=== PATIENT | male | born 1990 | race Caucasian/White ===

== ENCOUNTER 2024-05-03 09:33 | Observation (INO) ==
--- NOTE | 2024-05-03 09:49 | Emergency Department Note ---
HPI - Abdominal Pain General Chief Complaint: Abdominal Pain Stated Complaint: body ache, vomiting Time Seen by Provider: 05/03/24 09:35 Source: patient Mode of arrival: walk-in Limitations: no limitations History of Present Illness HPI narrative: 34 Y/O Male with a PMHX of HIV, Crohn's disease comes to the ER with c/o weakness, diarhea for the last week. MD elicited complaint: abdominal pain Pertinent past history: HIV Onset (ago): week(s) (1) Pain Consistency: constant Location: diffuse Related Data Allergies Allergy/AdvReac Type Severity Reaction Status Date / Time No Known Drug Allergies Allergy Verified 05/03/24 09:49 Review of Systems Status of ROS 10 or more systems reviewed and unremark able except as noted in history and below Constitutional Reports: fatigue; Denies: fever or chills Eyes Denies: change in vision, blurry vision, blind spots, light sensitivity, eye discomfort or eye discharge Ears, nose, mouth, and throat Denies: throat pain or ear discharge Cardiovascular Denies: chest pain, palpitations, shortness of breath with exertion or shortness of breath when lying down Respiratory Reports: cough and chest congestion; Denies: shortness of breath, wheezing, stridor, pain on inspiration, change in phlegm color or coughing up blood Gastrointestinal Reports: abdominal pain, nausea, vomiting, diarrhea and change in bowel habits Genitourinary Denies: painful urination, urinary frequency, urinary urgency or blood in urine Musculoskeletal Denies: back pain, neck pain, extremity pain, extremity swelling, joint pain or limited range of motion Integumentary/Breast Denies: rash or itching Exam Constitutional: normal general appearance, no limitations and alert Vital Signs - 24 hr 05/03/24 09:48 Temperature 97.9 F Pulse Rate 70 Respiratory Rate 16 Blood Pressure 103/80 Pulse Oximetry 99 Oxygen Delivery Me thod Room Air HENMT: normocephalic Eyes: PERRL Respiratory: normal respiratory effort, no wheezes, no rales, no retractions and no use of accessory muscles Chest congestion Cardiovascular: normal heart rate noted, regular rhythm noted and peripheral pulses 2+ throughout Gastrointestinal: abdomen normal to inspection, abdomen soft to palpation, non tender to palpation, nondistended and normoactive bowel sounds Back/Pelvis: spine normal to inspection, no thoracic spine tenderness, no lumbar spine tenderness, thoracic spine ROM normal and lumbar spine ROM normal 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 Patient given 2 liters NS bolus Azithromycin 500 IV piggy back Reevaluation(s) Reevaluation #1: Patient is stable. he currently denies pain. I discussed with the patient my suspected DX of Bronchitis per the CT scan. Dehydration, with MARVIN I did advised patient I would like to admitted for OBS for further treatment consideration. He agrees. 1115 - Paged UR for admission approval. 1120 I spoke with Enedelia, she agrees to OBS admission Time: 11:07 Vital Signs Vital signs: Vital Signs Temperature 97.9 F 05/03/24 09:48 Pulse Rate 70 05/03/24 09:48 Respiratory Rate 16 05/03/24 09:48 Blood Pressure 103/80 05/03/24 09:48 Pulse Oximetry 99 05/03/24 09:48 Oxygen Delivery Method Room Air 05/03/24 09:48 Temperature 97.9 F 05/03/24 09:48 Pulse Rate 70 05/03/24 09:48 Respiratory Rate 16 05/03/24 09:48 Blood Pressure 103/80 05/03/24 09:48 Pulse Oximetry 99 05/03/24 09:48 Oxygen Delivery Method Room Air 05/03/24 09:48 MDM - Abdominal Pain Differential Diagnosis Differential diagnosis: Likely abdominal pain Lab Data Attestation: I reviewed the patient's lab results. Labs: Lab Results 05/03/24 05/03/24 Range/Units 10:00 11:10 WBC 12.5 H (3.7-9.6) K/uL RBC 5.3 (4.40-5.80) M/uL Hgb 17.3 (14.0-17.4) gm/dL Hct 51.0 H (41.3-50.1) % MCV 96.4 (81.9-96.5) fl MCH 32.7 (27.6-33.7) pg MCHC 34.0 (33.0-35.7) g/dl RDW 13.0 (11.0-14.8) % Plt Count 243 (142-355) K/uL MPV 8.7 (6.0-10.4) fl Gran % 77.6 H (49.1-73.1) % Lymph % (Auto) 13.0 L (17.6-39.05) % [place] % (Auto) 9.0 (4.5-10.7) % Eos % (Auto) 0.1 (0.0-4.0) % Baso % (Auto) 0.3 (0.0-1.3) Lymph # (Auto) 1.6 (0.8-2.9) [place] # (Auto) 1.1 H (0.2-0.8) Eos # (Auto) 0.0 (0.0-0.3) Baso # (Auto) 0.0 (0.0-0.1) Absolute Gran (auto) 9.7 H (2.0-6.2) Sodium 128 L (136-145) mmol/L Potassium 4.2 (3.6-5.2) mmol/L Chloride 87.0 L (98-107) mmol/L Carbon Dioxide 31 (21-32) mmol/L Anion Gap 10.0 (4-14) mEq/L BUN 47 H (7-18) mg/dL Creatinine 2.3 H (0.6-1.3) mg/dL Estimated GFR 37.8 (>59.9) Glucose 108 (70-110) mg/dL Calcium 9.8 (8.5-10.1) mg/dL Urine Color Yellow (STRAW/YELL.) Urine Appearance Clear (CLEAR) Ur Specific [place] 1.010 (1.001-1.035) Urine Protein Trace (NEGATIVE) Urine Glucose (UA) Normal (NORMAL) Urine Ketones Negative (NEGATIVE) Urine Occult Blood Negative (NEG - TRACE) Urine Nitrite Negative (NEGATIVE) Urine Bilirubin Negative (NEGATIVE) Urine Urobilinogen Normal (NORMAL) Ur Leukocyte Esterase Negative (NEGATIVE) Fluid pH 6.0 (5 - 9) Imaging Data Imaging ordered: Chest x-ray and CT scan - abdomen Radiologist's impression: EXAMINATION: CT ABDOMEN PELVIS W CON HISTORY: VOMITING, DIARRHEA; CV/MB. COMPARISON: CT abdomen and pelvis 08/20/2023 TECHNIQUE: Postcontrast CT abdomen and pelvis was performed. Reformatted images were obtained as well. Lack of oral contrast limits diagnostic sensitivity The above CT scan was done with automated exposure control and the mA and kV was adjusted to obtain quality images according to patient size. FINDINGS: Lung bases: There is mucous plugging in the lung bases with bronchial thickening. No acute infiltrates Liver: No acute finding. There is a 1 cm cyst in the right lobe of the liver. Focal fatty replacement along the falciform ligament. GB/Biliary: No gallstones or dilated ducts Spleen: Normal size and density Pancreas: No acute findings. No pseudocyst or dilated duct Adrenal Glands: No mass Kidneys: No obstructing stone, hydronephrosis or solid lesion Abdominal aorta: Tapers and enhances normally. Mesenteric vessels are patent Retroperitoneum: No pathologically enlarged lymph nodes Bowel: No thickened or dilated loops of bowel, free fluid, free air, pneumatosis or abscess. The cecum extends into the pelvis. Normal appendix. No CT evidence for appendicitis, obstruction or diverticulitis. Bladder/: Ureters and bladder are unremarkable. Prostate and seminal vesicles are unremarkable for age. Osseous: Unremarkable with no acute finding or bony lesion. IMPRESSION: No acute intra-abdominal or intrapelvic process. No CT evidence for obstruction, diverticulitis or appendicitis. THIS IS AN ELECTRONICALLY VERIFIED FINAL REPORT 05/03/2024 10:34 AM - Electronically signed by Rashid Schneider MD EXAM: XR CHEST 1V HISTORY: fever, chills; pt. did not want to remove nipple rings COMPARISON: No relevant prior studies were available for comparison at the time of interpretation. TECHNIQUE: XR CHEST 1V FINDINGS: Chest: Lines and tubes: None Mediastinum: Cardiac and mediastinal shadow is within normal limits for size and contour. Pulmonary vessels: No pulmonary vascular congestion. Lung ng: No suspicious airspace opacity. Pleura: No effusion. No pneumothorax. Bones and soft tissues: No acute osseous or soft tissue abnormality. IMPRESSION: 1. No acute cardiopulmonary abnormality THIS IS AN ELECTRONICALLY VERIFIED FINAL REPORT 05/03/2024 10:56 AM - Electronically signed by Adi Godwin MD Discharge Plan Discharge Patient Disposition: Admitted As Observation Condition: Stable Clinical Impression: MARVIN (acute kidney injury), Bronchitis, Dehydration Time of Disposition: 11:19
[2024-05-03] MEDS ORDERED: 0.9 % SODIUM CHLORIDE 1000 ML 1,000 ML IV ONE ×2 (10:05→11:09)
[2024-05-03] MEDS: 0.9 % SODIUM CHLORIDE 1000 ML 1,000 ML IV ONE ×2 (10:05→11:09)
[2024-05-03 10:24] LABS: Potassium 4.2 mmol/L (3.6-5.2)
[2024-05-03 10:36] LABS: Basophils%(Percent) Auto 0.3 (0.0-1.3); Eosinophils%(Percent) Auto 0.1 % (0.0-4.0); Granulocytes % - Auto 77.6 % (49.1-73.1); Granulocytes#(Absolute)- Auto 9.7 (2.0-6.2); Mean Corpuscular Volume 96.4 fl (81.9-96.5); Monocytes #(Absolute)- Auto 1.1 (0.2-0.8); Platelet Count 243 K/uL (142-355); White Blood Count 12.5 K/uL (3.7-9.6)
[2024-05-03] MEDS ORDERED: 0.9 % SODIUM CHLORIDE 250 ML IV ONE (11:09)
[2024-05-03] MEDS ORDERED: AZITHROMYCIN 500 MG VIAL ONE (11:09)
[2024-05-03] MEDS: AZITHROMYCIN 500 MG 500 MG in 0.9 % SODIUM CHLORIDE 250 ML IV ONE (11:10)
[2024-05-03 11:19] LABS: Urine Appearance CLEAR (CLEAR); Urine Blood NEGATIVE (NEG - TRACE); Urine Color YELLOW (STRAW/YELL.)
[2024-05-03 11:20] LABS: Urine Urobilinogen Normal (NORMAL)
[2024-05-03] MEDS ORDERED: ONDANSETRON HCL/PF 4 MG/2 ML VIAL IVP PRN (11:23)
[2024-05-03] MEDS ORDERED: ACETAMINOPHEN 325 MG TABLET PO PRN (11:24)
[2024-05-03 11:30] LABS: Amphetamine Screen Urine NEG. (NEGATIVE); Cannabinoid Screen Urine POS. (NEGATIVE); Cocaine Screen Urine NEG. (NEGATIVE); Methadone Screen Urine NEG. (NEGATIVE); Opiate Screen Urine NEG. (NEGATIVE)
[2024-05-03 14:22] LABS: Bilirubin Direct 0.2 mg/dL (0.0-0.30)
[2024-05-03] MEDS: METOCLOPRAMIDE HCL 10 MG in 0.9 % SODIUM CHLORIDE 50 ML IVP SCH (14:28)
[2024-05-03] MEDS: ENOXAPARIN SODIUM 40 MG/0.4 ML SYRINGE SUBQ SCH (14:28)
[2024-05-03] MEDS: 0.9 % SODIUM CHLORIDE 1000 ML 1,000 ML IV SCH (14:28)
[2024-05-03] MEDS: PANTOPRAZOLE SODIUM 40 MG VIAL IVP SCH (20:18)
[2024-05-04 04:56] LABS: Basophils #(Absolute) Auto 0.1 (0.0-0.1); Basophils%(Percent) Auto 0.9 (0.0-1.3); Eosinophils#(Absolute)Auto 0.1 (0.0-0.3); Eosinophils%(Percent) Auto 1.6 % (0.0-4.0); Granulocytes % - Auto 45.6 % (49.1-73.1); Granulocytes#(Absolute)- Auto 3.7 (2.0-6.2); Hematocrit 41.4 % (41.3-50.1); Mean Corpuscular Volume 96.7 fl (81.9-96.5); Platelet Count 245 K/uL (142-355); White Blood Count 8.1 K/uL (3.7-9.6)
[2024-05-04 05:50] LABS: Potassium 3.8 mmol/L (3.6-5.2)
[2024-05-04 07:47] VITALS: BP 108/49; PULSE 65; RESP 19; TEMP 97.8
--- NOTE | 2024-05-04 09:21 | History & Physical Report ---
H&P: HPI History of Present Illness Chief complaint: MEL, Dehydration, Bronchitis Narrative: 34 Y/O Male with a PMHX of HIV, Crohn's disease comes to the ER with c/o weakness, intractable abdominal pain, nausea, vomiting, and diarrhea for the last week. Admitted to med/surg for further observation and treatment. Day one of hospital stay, patient was given 2 liters NS bolus and Azithromycin 500 IV in the ER. Patient was admitted to med/surg for acute renal injury, dehydration, and bronchitis. CT of the Abdomen and Pelvis was performed and findings were as follows: Lung bases: There is mucous jplugging in the lung bases with bronchial thickening. No acute infiltrates. Liver: No acute finding. There is a 1 cm cyst in the right lobe of the liver. Focal fatty replacement along the falciform ligament. Review of Systems Status of ROS 10 or more systems reviewed and unremark able except as noted in history and below Constitutional Reports: fatigue; Denies: fever or chills Eyes Denies: change in vision, blurry vision, blind spots, light sensitivity, eye discomfort or eye discharge Ears, nose, mouth, and throat Denies: throat pain, neck pain or ear discharge Cardiovascular Denies: chest pain, palpitations, shortness of breath with exertion or shortness of breath when lying down Respiratory Reports: cough and chest congestion; Denies: shortness of breath, wheezing, stridor, pain on inspiration, change in phlegm color or coughing up blood Gastrointestinal Reports: abdominal pain, nausea, vomiting, diarrhea and change in bowel habits Genitourinary Denies: painful urination, urinary frequency, urinary urgency or blood in urine Musculoskeletal Denies: back pain, neck pain, extremity pain, extremity swelling, joint pain or limited range of motion Integumentary/Breast Denies: rash or itching Endocrine Reports: fatigue Allergic/Immunologic Denies: wheezing [facility] Medical History (Updated 05/04/24 @ 09:28 by Ashley Saucedo DO) HIV (human immunodeficiency virus infection) Marijuana smoker, continuous History of Crohn's disease Social History Problems where you live: no known problems Highest level of school completed/degree received: College Do you think of yourself as: lesbian/larson/homosexual Gender Identity: male Meds Home Medications and Allergies Home Medications Medication Instructions Recorded Confirmed Type No Known Home Medication 05/03/24 05/03/24 History Allergies Allergy/AdvReac Type Severity Reaction Status Date / Time No Known Drug Allergies Allergy Verified 05/03/24 09:49 Exam Exam: Patient arrived to med/surg floor. Stable and calm at this time. Constitutional: normal general appearance, no apparent distress, average body habitus, no limitations and alert Vital Signs - 24 hr 05/03/24 09:48 05/03/24 10:30 05/03/24 11:00 Temperature 97.9 F Pulse Rate 70 72 75 Respiratory Rate 16 18 17 Blood Pressure 103/80 110/78 110/75 Pulse Oximetry 99 99 98 Oxygen Delivery Me thod Room Air Room Air Room Air 05/03/24 11:30 05/03/24 12:00 05/03/24 12:05 Temperature 98.3 F Pulse Rate 71 75 78 Respiratory Rate 17 17 17 Blood Pressure 110/73 115/75 125/87 Pulse Oximetry 98 98 98 Oxygen Delivery Me thod Room Air Room Air 05/03/24 12:10 Temperature Pulse Rate Respiratory Rate 18 Blood Pressure Pulse Oximetry 99 Oxygen Delivery Wa thod Room Air HENMT: normocephalic, head/scalp atraumatic, hearing grossly normal bilaterally, external ears normal and external nose normal Eyes: PERRL, conjunctivae normal, alignment normal, periorbital findings normal and visual acuity normal Neck/C-Spine: trachea midline Lymph: no lymphadenopathy noted Chest: inspection of chest normal and palpation of chest normal Respiratory: normal respiratory effort, no wheezes, no rales, no retractions and no use of accessory muscles Chest congestion Cardiovascular: normal heart rate noted, regular rhythm noted, no murmur and peripheral pulses 2+ throughout Gastrointestinal: abdomen normal to inspection, abdomen soft to palpation, nontender to palpation, nondistended and normoactive bowel sounds Genitourinary: bladder normal to palpation Back/Pelvis: spine normal to inspection, no thoracic spine tenderness, no lumbar spine tenderness, thoracic spine ROM normal and lumbar spine ROM normal Extremities: normal to inspection and no deformity 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, gait normal, speech normal and coordination normal Psychiatry: oriented x3, cooperative and affect normal Skin: skin color normal and no rash Assessment and Plan Assessment and Plan (1) Cannabinoid hyperemesis syndrome: Code(s): R11.2 - Nausea with vomiting, unspecified; F12.90 - Cannabis use, unspecified, uncomplicated (2) MARVIN (acute kidney injury): Code(s): N17.9 - Acute kidney failure, unspecified (3) Dehydration: Code(s): E86.0 - Dehydration (4) Hyponatremia: Code(s): E87.1 - Hypo-osmolality and hyponatremia (5) Abdominal pain: Qualifiers: Abdominal location: generalized Qualified Code(s): R10.84 - Generalized abdominal pain Code(s): R10.9 - Unspecified abdominal pain (6) HIV (human immunodeficiency virus infection): Qualifiers: HIV symptom status: unspecified Qualified Code(s): Z21 - Asymptomatic human immunodeficiency virus [HIV] infection status Code(s): Z21 - Asymptomatic human immunodeficiency virus [HIV] infection status (7) General weakness: Code(s): R53.1 - Weakness (8) Nausea & vomiting: Qualifiers: Vomiting type: unspecified Qualified Code(s): R11.2 - Nausea with vomiting, unspecified Code(s): R11.2 - Nausea with vomiting, unspecified (9) Diarrhea: Qualifiers: Diarrhea type: unspecified type Qualified Code(s): R19.7 - Diarrhea, unspecified Code(s): R19.7 - Diarrhea, unspecified (10) Bronchitis: Code(s): J40 - Bronchitis, not specified as acute or chronic (11) History of Crohn's disease: Code(s): Z87.19 - Personal history of other diseases of the digestive system (12) Marijuana smoker, continuous: Code(s): F12.90 - Cannabis use, unspecified, uncomplicated Plan AU Consultation Sodium Chloride 1,000 mls @ 150 mls/hr IV CONT Metoclopramide Hcl 10 mg in Sodium Chloride 52 mls @ 200 mls/hr IVP Q8H Pantoprazole Sodium 40 mg IVP BID Enoxaparin Sodium 40 mg SUBQ DAILY Ondansetron Hcl 4 mg IVP Q6H PRN Acetaminophen 650 mg PO Q6H PRN Results Labs Labs: CBC WBC 12.5 K/uL (3.7-9.6) H 05/03/24 10:00 RBC 5.3 M/uL (4.40-5.80) 05/03/24 10:00 Hgb 17.3 gm/dL (14.0-17.4) 05/03/24 10:00 Hct 51.0 % (41.3-50.1) H 05/03/24 10:00 MCV 96.4 fl (81.9-96.5) 05/03/24 10:00 MCH 32.7 pg (27.6-33.7) 05/03/24 10:00 MCHC 34.0 g/dl (33.0-35.7) 05/03/24 10:00 RDW 13.0 % (11.0-14.8) 05/03/24 10:00 Plt Count 243 K/uL (142-355) 05/03/24 10:00 MPV 8.7 fl (6.0-10.4) 05/03/24 10:00 Gran % 77.6 % (49.1-73.1) H 05/03/24 10:00 Lymph % (Auto) 13.0 % (17.6-39.05) L 05/03/24 10:00 [place] % (Auto) 9.0 % (4.5-10.7) 05/03/24 10:00 Eos % (Auto) 0.1 % (0.0-4.0) 05/03/24 10:00 Baso % (Auto) 0.3 (0.0-1.3) 05/03/24 10:00 Lymph # (Auto) 1.6 (0.8-2.9) 05/03/24 10:00 [place] # (Auto) 1.1 (0.2-0.8) H 05/03/24 10:00 Eos # (Auto) 0.0 (0.0-0.3) 05/03/24 10:00 Baso # (Auto) 0.0 (0.0-0.1) 05/03/24 10:00 Absolute Gran (auto) 9.7 (2.0-6.2) H 05/03/24 10:00 BMP Sodium 128 mmol/L (136-145) L 05/03/24 10:00 Potassium 4.2 mmol/L (3.6-5.2) 05/03/24 10:00 Chloride 87.0 mmol/L (98-107) L 05/03/24 10:00 Carbon Dioxide 31 mmol/L (21-32) 05/03/24 10:00 Anion Gap 10.0 mEq/L (4-14) 05/03/24 10:00 BUN 47 mg/dL (7-18) H 05/03/24 10:00 Creatinine 2.3 mg/dL (0.6-1.3) H 05/03/24 10:00 Estimated GFR 37.8 (>59.9) 05/03/24 10:00 Glucose 108 mg/dL (70-110) 05/03/24 10:00 Calcium 9.8 mg/dL (8.5-10.1) 05/03/24 10:00 Phosphorus 7.4 mg/dL (2.5-4.9) H 05/03/24 10:20 Magnesium 2.7 mg/dL (1.8-2.4) H* 05/03/24 10:20 Total Bilirubin 1.50 mg/dL (0.0-1.0) H 05/03/24 10:20 Direct Bilirubin 0.20 mg/dL (0.0-0.30) 05/03/24 10:20 Indirect Bilirubin 1.30 mg/dL 05/03/24 10:20 AST 18 U/L (15-37) 05/03/24 10:20 ALT 33 U/L (30-65) 05/03/24 10:20 Alkaline Phosphatase 106 U/L (50-136) 05/03/24 10:20 Total Protein 8.8 g/dL (6.4-8.2) H 05/03/24 10:20 Albumin 5.0 g/dL (3.4-5.0) 05/03/24 10:20 Liver Function Total Bilirubin 1.50 mg/dL (0.0-1.0) H 05/03/24 10:20 Direct Bilirubin 0.20 mg/dL (0.0-0.30) 05/03/24 10:20 Indirect Bilirubin 1.30 mg/dL 05/03/24 10:20 AST 18 U/L (15-37) 05/03/24 10:20 ALT 33 U/L (30-65) 05/03/24 10:20 Alkaline Phosphatase 106 U/L (50-136) 05/03/24 10:20 Total Protein 8.8 g/dL (6.4-8.2) H 05/03/24 10:20 Albumin 5.0 g/dL (3.4-5.0) 05/03/24 10:20 Urine Urine Color Yellow (STRAW/YELL.) 05/03/24 11:10 Urine Appearance Clear (CLEAR) 05/03/24 11:10 Ur Specific [place] 1.010 (1.001-1.035) 05/03/24 11:10 Urine Protein Trace (NEGATIVE) 05/03/24 11:10 Urine Glucose (UA) Normal (NORMAL) 05/03/24 11:10 Urine Ketones Negative (NEGATIVE) 05/03/24 11:10 Urine Occult Blood Negative (NEG - TRACE) 05/03/24 11:10 Urine Nitrite Negative (NEGATIVE) 05/03/24 11:10 Urine Bilirubin Negative (NEGATIVE) 05/03/24 11:10 Urine Urobilinogen Normal (NORMAL) 05/03/24 11:10 Ur Leukocyte Esterase Negative (NEGATIVE) 05/03/24 11:10 Imaging Imaging ordered: Chest x-ray and CT scan - abdomen Radiologist's impression: XR CHEST 1V Date of Service: 05/03/24 HISTORY: fever, chillsfever, chills; pt. did not want to remove nipple rings COMPARISON: No relevant prior studies were available for comparison at the time of interpretation. TECHNIQUE: XR CHEST 1V FINDINGS: Chest: Lines and tubes: None Mediastinum: Cardiac and mediastinal shadow is within normal limits for size and contour. Pulmonary vessels: No pulmonary vascular congestion. Lung ng: No suspicious airspace opacity. Pleura: No effusion. No pneumothorax. Bones and soft tissues: No acute osseous or soft tissue abnormality. IMPRESSION: 1. No acute cardiopulmonary abnormality CT ABDOMEN PELVIS W CON Date of Service: 05/03/24 HISTORY: VOMITING, DIARRHEA; CV/MB. COMPARISON: CT abdomen and pelvis 08/20/2023 TECHNIQUE: Postcontrast CT abdomen and pelvis was performed. Reformatted images were obtained as well. Lack of oral contrast limits diagnostic sensitivity The above CT scan was done with automated exposure control and the mA and kV was adjusted to obtain quality images according to patient size. FINDINGS: Lung bases: There is mucous plugging in the lung bases with bronchial thickening. No acute infiltrates Liver: No acute finding. There is a 1 cm cyst in the right lobe of the liver. Focal fatty replacement along the falciform ligament. GB/Biliary: No gallstones or dilated ducts Spleen: Normal size and density Pancreas: No acute findings. No pseudocyst or dilated duct Adrenal Glands: No mass Kidneys: No obstructing stone, hydronephrosis or solid lesion Abdominal aorta: Tapers and enhances normally. Mesenteric vessels are patent Retroperitoneum: No pathologically enlarged lymph nodes Bowel: No thickened or dilated loops of bowel, free fluid, free air, pneumatosis or abscess. The cecum extends into the pelvis. Normal appendix. No CT evidence for appendicitis, obstruction or diverticulitis. Bladder/: Ureters and bladder are unremarkable. Prostate and seminal vesicles are unremarkable for age. Osseous: Unremarkable with no acute finding or bony lesion. IMPRESSION: No acute intra-abdominal or intrapelvic process. No CT evidence for obstruction, diverticulitis or appendicitis.
[2024-05-04] MEDS: AZITHROMYCIN 500 MG 500 MG in 0.9 % SODIUM CHLORIDE 250 ML IV SCH (09:22)
--- NOTE | 2024-05-04 14:44 | Discharge Summary ---
DS: Providers Provider Date of admission: 05/03/24 11:29 Primary care physician: NO PCP Provider Admitting clinician: Silvia Briggs Attending physician on admission: Ashley Saucedo Attending physician on discharge: Ashley Saucedo Discharging clinician: Ashley Saucedo Anticipated date of discharge: 05/04/24 DS: Diagnosis Discharge Diagnosis (1) Cannabinoid hyperemesis syndrome: (2) MARVIN (acute kidney injury): (3) Dehydration: (4) Hyponatremia: (5) Abdominal pain: Qualifiers: Abdominal location: generalized Qualified Code(s): R10.84 - Generalized abdominal pain (6) HIV (human immunodeficiency virus infection): Qualifiers: HIV symptom status: unspecified Qualified Code(s): Z21 - Asymptomatic human immunodeficiency virus [HIV] infection status (7) General weakness: (8) Nausea & vomiting: Qualifiers: Vomiting type: unspecified Qualified Code(s): R11.2 - Nausea with vomiting, unspecified (9) Diarrhea: Qualifiers: Diarrhea type: unspecified type Qualified Code(s): R19.7 - Diarrhea, unspecified (10) Bronchitis: (11) History of Crohn's disease: (12) Marijuana smoker, continuous: Plan Discharge home for self care. DS: Summary Hospital Course Hospital Course: 34 Y/O Male with a PMHX of HIV, Crohn's disease comes to the ER with c/o weakness, intractable abdominal pain, nausea, vomiting, and diarrhea for the last week. Admitted to med/surg for further observation and treatment. Day one of hospital stay, patient was given 2 liters NS bolus and Azithromycin 500 IV in the ER. Patient was admitted to med/surg for acute renal injury, dehydration, and bronchitis. CT of the Abdomen and Pelvis was performed and findings were as follows: Lung bases: There is mucous plugging in the lung bases with bronchial thickening. No acute infiltrates. Liver: No acute finding. There is a 1 cm cyst in the right lobe of the liver. Focal fatty replacement along the falciform ligament. [facility] consultation was requested. Day two of hospital stay, patient states he is feeling better this morning and nausea/vomiting have resolved. Patient disclosed this morning he has not had diarrhea since since last Tuesday. [facility] agrees with current plan of care. As patient acute symptoms have resolved, he is ready to discharge home for self care. Per patient request, he prefers to make his own post hospital follow up appointments at this time. Status at Discharge Functional status at discharge: independent ambulation Overall status at discharge: patient is back to baseline Time Spent with Patient Time attestation: Total time spent providing and/or coordinating discharge services: Time spent: greater than 30 minutes Exam Constitutional: normal general appearance, no apparent distress, average body habitus, no limitations and alert Vital Signs - 24 hr 05/03/24 16:00 05/03/24 19:20 05/04/24 00:00 Temperature 98.4 F 98.5 F 98.3 F Pulse Rate [Left] 74 81 76 Respiratory Rate 19 17 18 Blood Pressure [Le ft Arm] 120/68 104/61 103/65 Pulse Oximetry 99 99 97 Oxygen Delivery Me thod Room Air Room Air Room Air 05/04/24 03:41 05/04/24 07:46 Temperature 98.7 F 97.8 F Pulse Rate [Left] 68 65 Respiratory Rate 17 19 Blood Pressure [Le ft Arm] 96/48 108/49 Pulse Oximetry 94 L 97 Oxygen Delivery Me thod Room Air Room Air HENMT: normocephalic, head/scalp atraumatic, hearing grossly normal bilaterally, external ears normal and external nose normal Eyes: PERRL, conjunctivae normal, alignment normal, periorbital findings normal and visual acuity normal Neck/C-Spine: trachea midline Lymph: no lymphadenopathy noted Chest: inspection of chest normal and palpation of chest normal Respiratory: normal respiratory effort, no wheezes, no rales, no retractions and no use of accessory muscles Cardiovascular: normal heart rate noted, regular rhythm noted, no murmur and peripheral pulses 2+ throughout Gastrointestinal: abdomen normal to inspection, abdomen soft to palpation, nontender to palpation, nondistended and normoactive bowel sounds Genitourinary: bladder normal to palpation Back/Pelvis: spine normal to inspection, no thoracic spine tenderness, no lumbar spine tenderness, thoracic spine ROM normal and lumbar spine ROM normal Extremities: normal to inspection and no deformity 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, gait normal, speech normal and coordination normal Psychiatry: oriented x3, cooperative and affect normal Skin: skin color normal and no rash DS: Data Data Completed and Pending Labs on day of discharge: Labs from last 24 hours 05/04/24 05/03/24 04:50 10:20 WBC 8.1 RBC 4.3 L Hgb 13.9 L Hct 41.4 MCV 96.7 H MCH 32.4 MCHC 33.5 RDW 12.5 Plt Count 245 MPV 8.4 Gran % 45.6 L Lymph % (Auto) 39.9 H [place] % (Auto) 12.0 H Eos % (Auto) 1.6 Baso % (Auto) 0.9 Lymph # (Auto) 3.2 H [place] # (Auto) 1.0 H Eos # (Auto) 0.1 Baso # (Auto) 0.1 Absolute Gran (auto) 3.7 Sodium 132 L Potassium 3.8 Chloride 97.0 L Carbon Dioxide 27 Anion Gap 8.0 BUN 23 H Creatinine 0.9 Estimated GFR 116.4 Glucose 93 Calcium 7.8 L Phosphorus 2.7 Magnesium 2.2 Total Bilirubin 1.50 H Direct Bilirubin 0.20 Indirect Bilirubin 1.30 AST 18 ALT 33 Alkaline Phosphatase 106 Total Protein 8.8 H Albumin 5.0 Imaging Abdominal x-ray: Radiologist's impression: CT ABDOMEN PELVIS W CON Date of Service: 05/03/24 HISTORY: VOMITING, DIARRHEA; CV/MB. COMPARISON: CT abdomen and pelvis 08/20/2023 TECHNIQUE: Postcontrast CT abdomen and pelvis was performed. Reformatted images were obtained as well. Lack of oral contrast limits diagnostic sensitivity The above CT scan was done with automated exposure control and the mA and kV was adjusted to obtain quality images according to patient size. FINDINGS: Lung bases: There is mucous plugging in the lung bases with bronchial thickening. No acute infiltrates Liver: No acute finding. There is a 1 cm cyst in the right lobe of the liver. Focal fatty replacement along the falciform ligament. GB/Biliary: No gallstones or dilated ducts Spleen: Normal size and density Pancreas: No acute findings. No pseudocyst or dilated duct Adrenal Glands: No mass Kidneys: No obstructing stone, hydronephrosis or solid lesion Abdominal aorta: Tapers and enhances normally. Mesenteric vessels are patent Retroperitoneum: No pathologically enlarged lymph nodes Bowel: No thickened or dilated loops of bowel, free fluid, free air, pneumatosis or abscess. The cecum extends into the pelvis. Normal appendix. No CT evidence for appendicitis, obstruction or diverticulitis. Bladder/: Ureters and bladder are unremarkable. Prostate and seminal vesicles are unremarkable for age. Osseous: Unremarkable with no acute finding or bony lesion. IMPRESSION: No acute intra-abdominal or intrapelvic process. No CT evidence for obstruction, diverticulitis or appendicitis. Chest x-ray: Radiologist's impression: XR CHEST 1V Date of Service: 05/03/24 HISTORY: fever, chills; pt. did not want to remove nipple rings COMPARISON: No relevant prior studies were available for comparison at the time of interpretation. TECHNIQUE: XR CHEST 1V FINDINGS: Chest: Lines and tubes: None Mediastinum: Cardiac and mediastinal shadow is within normal limits for size and contour. Pulmonary vessels: No pulmonary vascular congestion. Lung ng: No suspicious airspace opacity. Pleura: No effusion. No pneumothorax. Bones and soft tissues: No acute osseous or soft tissue abnormality. IMPRESSION: 1. No acute cardiopulmonary abnormality Discharge Plan Discharge Disposition: Home, Self-Care Condition: Improved Discharge Medications: Continued No Known Home Medication Discharge Orders: Discharge Order (Routine); Ordered 05/04/24 Ordered By: Ashley Saucedo Activity: increase activity as tolerated Diet: advance to your usual diet Interventions: Discharge Assessment Last Done: 05/04/24 09:37 MED/SURG & ICU Observation Charge Sheet Last Done: 05/04/24 05:48 Activity Restrictions/Additional Instructions: Patient declines any inpatient or outpatient rehab as he does not need any support at this time as he has already stopped using pot or any other drugs refuses list of local doctors and follow up with [facility] and states he will make it hisself. He seems anxious to leave and does not want our help at this time Forms: Portal/Health Info Access Inst Follow-Ups: Provider,NO PCP [Primary Care Provider] - Discharge Date/Time: 05/04/24 09:39
== END 2024-05-04 09:39 | disposition home or self-care (01) ==
LOC: ED 09:33 → MS 09:33
PROVIDERS: ADMIT Family Medicine; ATTEND Family Medicine